=== PATIENT | female | born 1980 | race Caucasian/White ===

== ENCOUNTER 2017-04-18 05:46 | Day surgery (SDC) | payer MEDICAID, OTHER ==
--- NOTE | 2017-04-17 22:54 | History and Physical Report ---
History of Present Illness Date of examination: 04/16/17 Chief complaint: undesired fertility, desire for Nexplanon removal History of present illness: Pt is a 36 year old female who presents for surgical sterilization. She is aware of long-acting reversible methods of contraception and desires to proceed. She also has a Nexplanon in her left arm inserted which she would like to have removed while under anesthesia. 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 History: abnormal PAP smear Family/Genetic History: diabetes Social history: - Obstetrical History : 8 Medications and Allergies Allergies Allergy/AdvReac Type Severity Reaction Status Date / Time No Known Allergies Allergy Unverified 04/16/17 10:15 Home Medications Medication Instructions Recorded Confirmed Last Taken Type Vit 93/Iron Fum/Folic 1 each PO QDAY 02/28/14 04/16/17 03/01/14 History [ Formula Tablet] Review of Systems All systems: negative - Physical Exam Breasts: Positive: deferred Cardiovascular: Regular rate Lungs: Positive: Clear to auscultation Abdomen: Positive: soft Extremities: Positive: normal Results All other labs normal. Assessment and Plan A: Undesired Fertility Nexplanon that has reached expiration of effectiveness P: Proceed with laparoscopic bilateral tubal ligation, Nexplanon removal from left arm, and other indicated procedures.
[~2017-04-18 05:46] MED LIST: ANCEF/STERILE WATER 2 GM/20 ML 2 GM/20 ML SYRINGE IV NR; LACTATED RINGERS 1,000 ML IV SCH
[2017-04-18] MEDS ORDERED: NACL BACTERIOSTATIC INFILTRATI ONE (06:34)
[2017-04-18] MEDS ORDERED: MARCAINE 0.5% 30 ML INFILTRATI ONE (06:37)
--- NOTE | 2017-04-18 07:07 | Anesthesia Consultation ---
Anesthesia Consult and Med Hx Date of service: 04/18/17 - Airway Anesthetic Teeth Evaluation: Good ROM Head & Neck: Adequate Mental/Hyoid Distance: Adequate Mallampati Class: Class II Intubation Access Assessment: Probably Good - Pulmonary Exam CTA: Yes - Cardiac Exam Cardiac Exam: RRR - Pre-Operative Health Status ASA Pre-Surgery Classification: ASA1 Proposed Anesthetic Plan: General - Pulmonary Hx Asthma: No COPD: No Hx Pneumonia: No - Cardiovascular System Hx Hypertension: No - Central Nervous System Hx Seizures: No Hx Psychiatric Problems: No - Endocrine Hx Renal Disease: No Hx End Stage Renal Disease: No Hx Hypothyroidism: No Hx Hyperthyroidism: No - Hematic Hx Anemia: No Hx Sickle Cell Disease: No - Other Systems Hx Alcohol Use: Yes (occas) Hx Cancer: No
--- NOTE | 2017-04-18 07:07 | Anesthesia Day of Surgery ---
Anesthesia Day of Surgery - Day of Surgery Patient Examined: Yes Patient H&P Reviewed: Yes Patient is NPO: Yes
[2017-04-18] MEDS ORDERED: ZEMURON IV ONE (07:18)
[2017-04-18] MEDS ORDERED: ROBINUL ONE (07:19)
[2017-04-18] MEDS ORDERED: XYLOCAINE MPF 2% ONE (07:19)
[2017-04-18] MEDS ORDERED: DECADRON ONE (07:19)
[2017-04-18] MEDS ORDERED: DIPRIVAN 10 MG/ML IV ONE ×2 (07:20→09:59)
[2017-04-18] MEDS ORDERED: SUBLIMAZE ONE (07:20)
[2017-04-18] MEDS ORDERED: PEPCID PO NR (08:00)
[2017-04-18] MEDS ORDERED: VERSED IV NR (08:00)
[2017-04-18] MEDS ORDERED: PERCOCET 5/325 PO PRN ×2 (08:00→11:00)
[2017-04-18] MEDS ORDERED: NEOSTIGMINE ONE (08:21)
[2017-04-18] MEDS ORDERED: DILAUDID ONE (08:23)
[2017-04-18] MEDS ORDERED: ZOFRAN IV PRN (08:30)
[2017-04-18] MEDS ORDERED: MARCAINE 0.5% INFILTRATI ONE (09:00)
[2017-04-18] MEDS ORDERED: NACL 0.9% IR ONE (09:01)
[2017-04-18] MEDS ORDERED: MONSEL'S TP ONE ×2 (09:37→09:40)
--- NOTE | 2017-04-18 10:00 | Operative Report ---
Operative Report Operative Report: Date of procedure: April 18, 2017 Preoperative diagnosis: 1) Multiparity desires permanent sterilization 2) Nexplanon that has reached expiration Postoperative diagnosis: Same Procedure: 1) Nexplanon Removal 2) Laparoscopic bilateral tubal ligation via Filshie clip method Surgeon: Nallely Godfrey M.D. Anesthesia: General endotracheal anesthesia Findings: 1) Small retroverted uterus 2) Normal appearing ovaries and tubes with increased vascularity Estimated blood loss: 10 mL IV fluid: 650 mL Urine output: 250 mL clear prior to the procedure Specimens: cervical tissue to pathology Complications: None. Counts correct 2 Disposition: Stable to PACU Indications for procedure: Pt is a 36 year old female who presents for surgical sterilization. She is aware of long-acting reversible methods of contraception and desires to proceed. She also has a Nexplanon in her left arm inserted which she would like to have removed while under anesthesia. Operation in detail: After the risks, benefits, alternatives and complications of the procedure were explained to the patient, she gave informed consent for the procedure. She was subsequently taken to the operating room with her IV noted to be running and placed in the dorsal supine position with sequential compression devices functioning. General endotracheal anesthesia was then induced without difficulty. An exam under anesthesia was then performed yielding a 6-8 wk size retroverted uterus. The patient was then placed in placement dorsal lithotomy position and prepped and draped in normal sterile fashion. A timeout was then performed. The patients left arm was prepped and draped. Her Left arm was palpated and the implant was located. The distal end of the device was palpated and 2 mL of quarter percent marcaine without epinephrine was injected under the implant. A three mm inicision was made in the skin with an 11 blade at the distal end of the implant. The edge of the implant was visible at the incision and was grasped with a curved hemostat. Any fibrotic tissue was carefully dissected away using sharp dissection with the knife. The implant was removed intact and sent to pathology. Mastisol and Steri-Strips were used reapproximate the incision. It was then covered with a Band-Aid, Raytecs, and a pressure dressing. Attention was then turned to the tubal ligation, and the surgeon re- scrubbed. The patient was then placed in the dorsal lithotomy position and prepped and draped in a normal sterile fashion. The bladder was then drained of urine yielding 250 mL of clear urine. An open sided speculum was placed into the vagina for visualization of the cervix. A single-tooth tenaculum was placed on the anterior lip of the cervix for traction. Friable cervical tissue was noted at the external os which was removed and sent to pathology. The uterus was then sounded to 7 cm. A Taggled uterine manipulator was then placed. The single- tooth tenaculum and speculum were then removed from the vagina. The surgeon's gloves were then changed. Attention was then turned to entry into the abdominal cavity. A 5 mm infraumbilical incision was made with an 11 blade. The skin was grasped on either side of the umbilicus and tented up. The Veres needle was placed into the peritoneal cavity, confirmed with a saline drop test. The abdomen was then insufflated with CO2 gas to a pressure of 15 mmHg. A 5 mm Visiport trocar was then placed. An anatomic survey was then performed with findings as indicated above. A second trocar site was created 4 cm superior to the pubic symphysis in the midline measuring 8 mm. An 8 mm trocar was then placed under direct visualization. The patient was replaced in Trendelenburg position. The uterus was elevated, and two Filshie clips were then placed across each fallopian tube at the level of the ampullae. At this time, all instruments were removed from the abdominal cavity. The pneumoperitoneum was released. The incisions were then infiltrated with quarter percent Marcaine. The incisions were then reapproximated with 4-0 Monocryl in a subcuticular fashion. The incisions were then covered with Steri-Strips, telfa and a tegaderm. All instruments were then removed from the vagina and the cervix was noted to be hemostatic. At this time the procedure was ended. The patient was replaced into the dorsal supine position and extubated without difficulty. She was subsequently taken to the PACU in stable condition. All instrument, needle and lap counts were correct 2.
[2017-04-18] MEDS ORDERED: TORADOL ONE (10:05)
--- NOTE | 2017-04-18 10:05 | Short Stay Summary ---
Short Stay Documentation Date of service: 04/18/17 - History H&P: dictated Social history: - Allergies and Medications Current Medications: Allergies No Known Allergies Allergy (Verified 04/17/17 22:51) Home Medications Medication Instructions Recorded Confirmed Last Taken Type Vit 93/Iron Fum/Folic 1 each PO QDAY 02/28/14 04/18/17 04/17/17 History [ Formula Tablet] Active Medications Famotidine (Pepcid) 20 mg PO PREOP NR Stop: 04/18/17 15:00 Hydromorphone HCl (Dilaudid) 0.5 mg IV Q10MIN PRN PRN Reason: Pain , Severe (7-10) Stop: 04/18/17 15:00 Cefazolin Sodium (Ancef/Sterile Water 2 Gm/20 Ml) 2 gm in 20 mls @ 80 mls/hr IV PREOP NR PRN Reason: Protocol Stop: 04/18/17 23:59 Lactated Ringer's (Lactated Ringers) 1,000 mls @ 100 mls/hr IV DIRECT PATT Midazolam HCl (Versed) 2 mg IV PREOP NR Stop: 04/18/17 23:59 - Physical exam Breasts: deferred - Brief post op/procedure progress note Date of procedure: 04/18/17 Pre-op diagnosis: Nexplanon, Laparoscopic Tubal Ligation Post-op diagnosis: same Procedure: 1) Nexplanon removal from left arm 2) Laparoscopic bilateral tubal ligation via Filshie Clip Method Anesthesia: GETA Findings: 1) Small retroverted uterus 2) Normal appearing ovaries and tubes with increased vascularity Surgeon: NEGIN VILLALOBOS Estimated blood loss: minimal (10 mL) Pathology: list (cervical tissue, Nexplanon amelia to pathology) Specimen disposition: to lab Condition: stable - Hospital course Hospital course: Pt tolerated Nexplanon removal and laparoscopic bilateral tubal ligation well. She was observed in the PACU until she met discharge criteria. She will follow up in the office in 2 weeks. - Disposition Condition at discharge: Stable Disposition: -01 TO HOME OR SELFCARE - Discharge Diagnoses (1) Encounter for sterilization Status: Acute (2) Nexplanon removal Status: Acute Short Stay Discharge Plan Activity: other (Nothing in vagina and no baths for 4 weeks ) Weight Bearing Status: Full Weight Bearing Diet: regular Follow up with: NEGIN VILLALOBOS MD [Staff Physician] - 05/02/17 (incision check ) Prescriptions: Ibuprofen [Motrin] 800 mg PO Q8HR PRN #301 tablet PRN Reason: Pain oxyCODONE /ACETAMINOPHEN [Percocet 5/325] 1 tab PO Q6HR PRN #20 tablet PRN Reason: Pain
[2017-04-18] MEDS: DILAUDID IV PRN ×2 (10:18→10:30)
--- NOTE | 2017-04-18 10:43 | Post Anesthesia Evaluation ---
- Post Anesthesia Evaluation Patient Participated: Yes Airway Patent: Yes Stable Respiratory Function: Yes Temp > 96.8F: Yes Pain Manageable: Yes Adequeate Hydration: Yes Anesthesia Complications: No
[2017-04-18 12:18] VITALS: BP 138/85
== END 2017-04-18 11:58 | disposition home or self-care (01) ==
LOC: OR 05:46
PROVIDERS: ATTEND Obstetrics & Gynecology
DX: Z30.2 Encounter for sterilization (principal); N72 Inflammatory disease of cervix uteri
CPT/HCPCS: 11982; 57500; 58671; 81025; 88300; 88305; J0690; J1100; J1170; J1885; J2250; J2405; J2704; J2710; J3010; J7120; 88302